=== PATIENT | female | born 1975 | race Caucasian/White ===

== ENCOUNTER 2019-08-30 07:52 | Day surgery (SDC) | payer BC ==
[2019-08-30] MEDS ORDERED: Propofol 200 MG/20 ML SDV IV ONE (07:53)
[2019-08-30] MEDS ORDERED: Labetalol 100 MG/20 ML MDV IV ONE (07:53)
[2019-08-30] MEDS ORDERED: Lactated Ringers 1,000 ML IV SCH (08:00)
[2019-08-30] MEDS ORDERED: Sodium Chloride 0.9% 10 ML Syringe FLUSH PRN (08:00)
--- NOTE | 2019-08-30 09:45 | PCM.OPNOTE ---
- General Post-Op/Procedure Note Date of Surgery/Procedure: 08/30/19 Operative Procedure(s): c scope with bx Findings: nl exam Pre Op Diagnosis: hx of colitis Post-Op Diagnosis: Same Anesthesia Technique: MAC Primary Surgeon: Jayson Cowan (b) Anesthesia Provider: Marcus Cardozo Pathology: random biopsies Complications: None Condition: Good Free Text/Narrative:: see dictation
[2019-08-30 10:38] VITALS: BP 143/81; PULSE 87
--- NOTE | 2019-08-30 15:59 | OR ---
DATE OF OPERATION: 08/30/2019 SURGEON: Jayson Cowan MD PROCEDURE PERFORMED: Colonoscopy with cold forceps biopsy. PREOPERATIVE DIAGNOSIS: History of colitis. POSTOPERATIVE DIAGNOSIS: Normal exam. 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 She is due for a followup 5-year colonoscopy. DESCRIPTION OF OPERATION: After an excellent IV sedation was administered, digital rectal exam was performed. No marked abnormality was noted. Flexible colonoscope was inserted and advanced to the cecum. Prep was excellent. The following findings were noted. The ascending colon, unremarkable. Random biopsies were taken. Transverse colon, unremarkable. Random biopsies were taken. Descending colon, unremarkable. Random biopsies were taken. Sigmoid and rectum, unremarkable. Random biopsies were taken. Colon was deflated as the scope was removed. The patient tolerated the procedure well, was taken to recovery in good condition. Results by letter. /[id number] /[id number]
== END 2019-08-30 10:31 | disposition home or self-care (01) ==
LOC: FB.SDS 07:52
PROVIDERS: ATTEND Surgery
DX: Z12.11 Encounter for screening for malignant neoplasm of colon (principal); E11.9 Type 2 diabetes mellitus without complications; Z87.19 Personal history of other diseases of the digestive system; Z79.84 Long term (current) use of oral hypoglycemic drugs; Z79.2 Long term (current) use of antibiotics
CPT/HCPCS: 45380; 81025; 82962; 88305; J2704; J3490; J7120